=== PATIENT | male | born 1965 | race Caucasian/White ===

== ENCOUNTER 2019-05-03 19:16 | Emergency (ER) | payer BC ==
[~2019-05-03] VITALS: Ht 165.1 cm; Wt 71.8 kg
[~2019-05-03 19:16] MED LIST: ACET500C5 PO; AZIT250T PO; D-ME473S2 PO
[2019-05-03 19:19] VITALS: BP 137/70; PULSE 71; RESP 19; Ht 165.1 cm; Wt 71.8 kg
== END 2019-05-03 19:31 | disposition home or self-care (01) ==
LOC: E/R 19:16
DX: R05 Cough (principal); F17.210 Nicotine dependence, cigarettes, uncomplicated
CPT/HCPCS: 99283